=== PATIENT | female | born 1985 | race Caucasian/White ===

== ENCOUNTER 2017-06-26 06:18 | Inpatient (IN) | payer BC ==
[~2017-06-26] VITALS: Ht 167.6 cm; Wt 50.3 kg
[2017-06-26] VITALS (13 sets, daily range): BP systolic 89–121; BP diastolic 38–70
--- NOTE | 2017-06-26 01:01 | History and Physical Report ---
DATE OF ADMISSION: 06/26/2017 PREOPERATIVE DIAGNOSIS: Symptomatic uterine fibroid. HISTORY OF PRESENT ILLNESS: The patient who has been followed by me for approximately one year with a large uterine fibroid. Her symptoms included pain, dysmenorrhea, pressure like pain and heavy period. The patient has not attempted yet, but has planned to get soon. She was extensively counseled regarding risk factor management and she would like to have myomectomy. PAST MEDICAL HISTORY: None. PAST SURGICAL HISTORY: None. ALLERGIES: None. SOCIAL HISTORY: The patient does not drink or smoke. She lives with her fiance. REVIEW OF SYSTEMS: Contributory for lower abdominal pressure pain, occasional pain with intercourse, and heavy periods. PHYSICAL EXAMINATION: GENERAL: A young female, in no acute distress. HEAD AND NECK: Pupils are reactive to light. LUNGS: Clear to auscultation bilaterally. CARDIAC: Regular rate and rhythm. ABDOMEN: Soft, nondistended, and nontender. EXTREMITIES: No cords. No cyanosis. No edema. GENITOURINARY: Bimanual exam, 9 cm posterior fibroid adnexa, not easily palpable. Rectovaginal, no masses. DIAGNOSTIC DATA: Ultrasound consistent with 10 x 6 x 9 cm posterior fibroid. PLAN: Laparoscopically-assisted myomectomy with general anesthesia. Lyn Alex M.D. DR: Martina JOB#: [id number] CC:
[2017-06-26] MEDS ORDERED: cefOXitin Sod 2 GM in D5W 55 ML IVPB ONE (07:00)
[2017-06-26] MEDS ORDERED: Ropivacaine 5mg/ml Vial 20ml INJ ONE (07:04)
[2017-06-26] MEDS ORDERED: cefOXitin 1gm Inj ONE (07:05)
[2017-06-26] MEDS ORDERED: LR 1000ml 1,000 ML IVLG SCH (07:08)
--- NOTE | 2017-06-26 07:09 | Anethesia Preoperative Eval ---
Anesthesia Pre-op PMH/ROS General Date of Evaluation: Jun 26, 2017 Time of Evaluation: 07:41 Anesthesiologist: Kathy ASA Score: ASA 1 Mallampati Score Class I : Soft palate, uvula, fauces, pillars visible Class II: Soft palate, uvula, fauces visible Class III: Soft palate, base of uvula visible Class IV: Only hard plate visible Mallampati Classification: Class I Surgeon: Isai Diagnosis: Uterine Fibroids Surgical Procedure: Laparoscopic Myomectomy, Mini-Laparotomy Anesthesia History: none Family History: no anesthesia problems Allergies: Coded Allergies: No Known Allergies (Unverified , 06/25/17) Medications: see eMAR Anesthesia Pre-op Phys. Exam Physician Exam Last Vital Signs Date Time Temp Pulse Resp B/P Pulse Ox O2 Delivery O2 Flow Rate FiO2 06/26/17 06:56 98.2 71 18 109/66 100 Room Air Constitutional: NAD Neurologic: CN 2-12 intact Cardiovascular: RRR Respiratory: CTA Gastrointestinal: S/NT/ND Airway Exam Mallampati Score: Class I MO: full ROM: full Teeth: intact Anesthesia Pre-op A/P Risk Assessment & Plan Assessment: ASA 1 Plan: GA, BIS, Glidescope Status Change Before Surgery: Yes Pre-Antibiotics Dru Grams Cefoxitin Given Within 1 Hr of Incision: Yes Time Given: 07:51 Moises Chavez MD Jun 26, 2017 07:09
[2017-06-26] MEDS ORDERED: NKM (07:11)
[2017-06-26] MEDS ORDERED: oxyCODONE HCL/Acetaminophen 5/325mg ORAL PRN (07:15)
[2017-06-26] MEDS ORDERED: Ketorolac 30mg Inj IV PRN (07:15)
[2017-06-26] MEDS ORDERED: Norco 7.5mg/325mg tab ORAL PRN (07:15)
[2017-06-26] MEDS ORDERED: fentaNYL 100 mcg/2 mL IV PRN (07:15)
[2017-06-26] MEDS ORDERED: Midazolam 2mg/2ml Inj IVP PRN (07:15)
[2017-06-26] MEDS ORDERED: Ketorolac 60mg Inj IV PRN (07:15)
[2017-06-26] MEDS ORDERED: Hydromorphone 0.5mg/0.5ml inj IVP PRN (07:15)
[2017-06-26] MEDS ORDERED: LORazepam Inj 2mg/ml 1ml IV PRN (07:15)
[2017-06-26] MEDS ORDERED: DiphenhydrAMINE 50mg/ml Inj IVP PRN ×2 (07:15→14:00)
[2017-06-26] MEDS ORDERED: Atropine Inj 1mg/10ml Syr IV PRN (07:15)
[2017-06-26] MEDS ORDERED: Metoclopramide 10mg/2ml Inj IVP PRN (07:15)
[2017-06-26] MEDS ORDERED: Meperidine 25mg/0.5ml Inj (FOR RIGORS ONLY) IV PRN (07:15)
[2017-06-26] MEDS ORDERED: Norco 5mg/325mg tab ORAL PRN (07:15)
[2017-06-26] MEDS ORDERED: cefOXitin 1gm/D5W 55ml IVPB ONE ×2 (07:30)
--- NOTE | 2017-06-26 07:42 | Immediate Post-Op Evaluation ---
Immediate Post-Op Evalulation Immediate Post-Op Evalulation Procedure: Laparoscopic Myomectomy, Mini-Laparotomy Date of Evaluation: Jun 26, 2017 Time of Evaluation: 10:53 IV Fluids: 1000 LR Blood Products: 0 Estimated Blood Loss: 50 Urinary Output: 150 Blood Pressure Systolic: 89 Blood Pressure Diastolic: 51 Pulse Rate: 62 Respiratory Rate: 16 O2 Sat by Pulse Oximetry: 100 Temperature (Fahrenheit): 97.9 Pain Score (1-10): 2 Nausea: No Vomiting: No Complications 0 Patient Status: awake, reacts, patent, extubated, none Hydration Status: adequate Dru Grams Ancef IV Given Within 1 Hr of Incision: Yes Time Given: 07:51 Moises Chavez MD Jun 26, 2017 07:42
--- NOTE | 2017-06-26 07:49 | Pre-Procedure Note/Attestation ---
Pre-Procedure Note/Attestation Complete Prior to Procedure Planned Procedure: not applicable Procedure Narrative: laparoscopically assisted open myomectomy Indications for Procedure Pre-Operative Diagnosis: large symptomatic fibroid Attestation I attest that I discussed the nature of the procedure; its benefits; risks and complications; and alternatives (and the risks and benefits of such alternatives ), prior to the procedure, with the patient (or the patient's legal renewals representative). I attest that, if there was a reasonable possibility of needing a blood transfusion, the patient (or the patient's legal renewals representative) was given the [facility] standardized written summary, pursuant to the [employer] Blood Safety Act ([place] Health and Safety Code # 1645, as amended). I attest that I re-evaluated the patient just prior to the surgery and that there has been no change in the patient's H&P, except as documented below: MAMADOU NOVA Jun 26, 2017 07:49
[2017-06-26] MEDS ORDERED: Surgicel 4in x 8in TOPIC ONE (09:08)
[2017-06-26] MEDS ORDERED: Interceed TOPIC ONE (09:08)
[2017-06-26] MEDS ORDERED: Ketorolac 30mg Inj IM PRN (14:00)
[2017-06-26] MEDS: Docusate 100mg cap ORAL SCH (17:04)
[2017-06-26] MEDS: Hydromorphone 0.5mg/0.5ml inj IVP PRN (23:40)
[2017-06-27 04:00] VITALS: BP 111/92
[2017-06-27] MEDS: Hydromorphone 0.5mg/0.5ml inj IVP PRN (04:35)
[2017-06-27 06:03] LABS: BASOPHILS % (AUTO) 0.3 % (0.0-2.0); EOSINOPHILS % (AUTO) 0.2 % (0.0-3.0); LYMPHOCYTES % (AUTO) 10.6 % (20.0-45.0); MEAN CORPUSCULAR HEMOGLOBIN 31.7 PG (27.0-31.0); MEAN CORPUSCULAR HGB CONC 33.3 G/DL (32.0-36.0); MEAN CORPUSCULAR VOLUME 95 FL (80-99); MEAN PLATELET VOLUME 8.2 FL (6.5-10.1); MONOCYTES % (AUTO) 9.9 % (1.0-10.0); PLATELET COUNT 156 K/UL (150-450); RED BLOOD COUNT 3.71 M/UL (4.20-5.40); RED CELL DISTRIBUTION WIDTH 11.1 % (11.6-14.8); WHITE BLOOD COUNT 15.3 K/UL (4.8-10.8)
[2017-06-27 08:36] VITALS: BP 96/54
[2017-06-27] MEDS ORDERED: cefOXitin 1gm Inj ONE (09:20)
[2017-06-27] MEDS ORDERED: LR 1000ml ONE (09:20)
[2017-06-27] MEDS ORDERED: Glycopyrrolate 0.2mg/ml 1ml Vial ONE (09:20)
[2017-06-27] MEDS ORDERED: Lidocaine 1% Plain 30 ml INJ ONE (09:20)
[2017-06-27] MEDS ORDERED: Dexamethasone 4mg/ml vial ONE (09:20)
[2017-06-27] MEDS ORDERED: Zemuron 50mg/5ml Inj IV ONE (09:20)
[2017-06-27] MEDS ORDERED: NS Irrig 1000ml ONE (09:20)
[2017-06-27] MEDS ORDERED: Sterile Water Irrig 1000ml IRRIG ONE (09:20)
[2017-06-27] MEDS ORDERED: fentaNYL 100 mcg/2 mL IV ONE (09:20)
[2017-06-27] MEDS ORDERED: Neostigmine 1mg/ml 10ml Inj ONE (09:20)
--- NOTE | 2017-06-27 09:56 | General Surgery Progress Note ---
General Surgery-Progress Note Subjective Symptoms: pain absent, tolerating diet Objective Last 24 Hour Vital Signs Date Time Temp Pulse Resp B/P Pulse Ox O2 Delivery O2 Flow Rate FiO2 06/27/17 08:36 96.5 48 18 96/54 100 Room Air 06/27/17 05:05 98.2 06/27/17 04:00 98.2 58 18 111/92 98 Room Air 06/26/17 23:45 97.6 65 18 107/65 98 Room Air 06/26/17 20:00 97.4 70 19 111/62 98 Room Air 06/26/17 16:00 98.0 67 20 115/67 100 Room Air 06/26/17 14:40 97.0 67 18 106/57 100 Room Air 06/26/17 12:40 97.0 65 18 99/57 100 Nasal Cannula 2.0 06/26/17 11:40 96.8 74 20 121/70 99 Nasal Cannula 2.0 06/26/17 11:24 97.9 06/26/17 11:22 51 18 105/53 100 Nasal Cannula 2.0 06/26/17 11:16 56 18 99/53 100 Nasal Cannula 2.0 06/26/17 11:00 59 18 94/49 100 Nasal Cannula 2.0 06/26/17 10:52 62 18 90/47 100 Simple Mask 10.0 06/26/17 10:47 58 18 92/46 100 Simple Mask 10.0 06/26/17 10:43 62 16 100 06/26/17 10:42 97.9 62 18 89/38 100 Simple Mask 10.0 I&O Intake and Output 06/26/17 06/27/17 19:00 07:00 Intake Total 2240 ml 100 ml Output Total 1500 ml 1500 ml Balance 740 ml -1400 ml Intake Oral 240 ml 100 ml IV Total 2000 ml Output Urine Total 1450 ml 1500 ml Estimated Blood Loss 50 ml Dressing: dry, saturated, bloody Wound: clean, dry, intact Drains: none Cardiovascular: RSR Respiratory: clear Abdomen: soft, distended, present bowel sounds Laboratory Tests Test 06/27/17 05:20 White Blood Count 15.3 K/UL (4.8-10.8) H Red Blood Count 3.71 M/UL (4.20-5.40) L Hemoglobin 11.7 G/DL (12.0-16.0) L Hematocrit 35.3 % (37.0-47.0) L Mean Corpuscular Volume 95 FL (80-99) Mean Corpuscular Hemoglobin 31.7 PG (27.0-31.0) H Mean Corpuscular Hemoglobin Concent 33.3 G/DL (32.0-36.0) Red Cell Distribution Width 11.1 % (11.6-14.8) L Platelet Count 156 K/UL (150-450) Mean Platelet Volume 8.2 FL (6.5-10.1) Neutrophils (%) (Auto) 79.0 % (45.0-75.0) H Lymphocytes (%) (Auto) 10.6 % (20.0-45.0) L Monocytes (%) (Auto) 9.9 % (1.0-10.0) Eosinophils (%) (Auto) 0.2 % (0.0-3.0) Basophils (%) (Auto) 0.3 % (0.0-2.0) Plan Additional Comments s/p myomectomy discharge home MAMADOU NOVA Jun 27, 2017 09:56
--- NOTE | 2017-06-27 09:57 | Discharge Summary ---
Discharge Summary Hospital Course Date of Admission Jun 26, 2017 at 06:18 Date of Discharge jun [id number] Admitting Diagnosis symptomatic fibroid HPI Ana Murguia is a 32 year old female who was admitted on Jun 26, 2017 at 06: 18 for Uterine Fibroids Procedures myomectomy Hospital Course benign Discharge Condition Upon Discharge: stable Discharge Disposition Patient was discharged to home Discharge Diagnoses: MAMDAOU NOVA Jun 27, 2017 09:57
[2017-06-27] MEDS: Docusate 100mg cap ORAL SCH (10:04)
[2017-06-27] MEDS ORDERED: IBUPROFEN600 MG ORAL (10:49)
[2017-06-27] MEDS ORDERED: PROTONIX20 MG ORAL (10:51)
[2017-06-27] MEDS ORDERED: OXYCODONE-ACET1 EAC3 ORAL (11:32)
--- NOTE | 2017-06-27 13:30 | Operative Note - Dictated ---
DATE OF OPERATION: 06/26/2017 PREOPERATIVE DIAGNOSIS: Symptomatic uterine fibroids. POSTOPERATIVE DIAGNOSES: 1. Symptomatic uterine fibroids. 2. A 11 cm fibroid posterior fundal less than 30% penetrating the fundal myometrium. 3. The patient may have a trial of labor. SURGEON: Lyn Alex M.D. SHIP CEILER: Luis Fontana M.D. ANESTHESIOLOGIST: Moises Chavez M.D. ANESTHESIA: General endotracheal. ESTIMATED BLOOD LOSS: 200 mL. PROCEDURE: diagnostic laparoscopy and myomectomy PROCEDURE IN DETAIL: After ensuring informed consent, the patient was taken to the operating room, where general anesthesia was induced. The patient was sterilely prepped and draped. Weighted speculum was placed in the vagina. The acorn manipulator was placed inside the cervix. Then attention was turned to the abdomen where a small incision was made inside the umbilicus after infiltration with local anesthesia. A Veress needle was placed inside the peritoneal cavity. Peritoneal cavity was distended with CO2 gas. A 5 millimeter trocar was placed inside the peritoneal cavity and intraperitoneal placement was confirmed with the camera a large fundal 10 to 11 cm fibroid was observed if location was confirmed. A 4 centimeter incision was made over the fibroid in the lower abdomen. The incision was carried down to the level of the fascia with the Bovie. The fascia was nicked in the midline. Incision was extended laterally tented up and both bluntly and sharply dissected off of the underlying rectus muscles. Rectus muscles were parted in the midline. Peritoneum was identified, entered sharply. Peritoneal incision was extended. Fibroid was grasped with a Ludivina clamp. A dilute solution of Pitressin was infiltrated. IV serosa over the fibroid was opened and the fibroid was grasped with Ludivina clamps and it was a morcellate and multiple pieces were removed and so was possible to remove the whole fibroid. Serosa was trimmed. The uterine fundus was closed in multiple layers with 0 Vicryl until excellent hemostasis was assured. Intercede adhesion prevention. Abdomen was irrigated with a liter of fluid and the irrigant was suctioned off. Intercede adhesion prevention. The area was placed over the incision. Peritoneum was closed with 0 Vicryl. The fascia was closed with 0 Vicryl. Subcutaneous tissue was closed in multiple layers with 3-0 plain and skin was closed with 3-0 Monocryl and Steri-Strips. The umbilical incision was closed with 3-0 Monocryl and Steri-Strips. At the end of the procedure all instrument and lap counts were correct x2. A core removed from the cervix and excellent hemostasis was assured at the tenaculum puncture sites. At the end of the procedure. All instrument and lap counts were correct x2. The patient was taken to the recovery area extubated and breathing on her own. Lyn Alex M.D. DR: LONI JOB#: [id number] CC: IVETH
[2017-06-27 16:28] VITALS: BP 98/52
--- NOTE | 2017-06-27 16:28 | 48 Hour Post Anesthesia Eval ---
Post Anesthesia Evaluation Procedure: Laparoscopic Myomectomy, Mini-Laparotomy Date of Evaluation: Jun 27, 2017 Time of Evaluation: 16:27 Blood Pressure Systolic: 98 0: 52 Pulse Rate: 64 Respiratory Rate: 20 Temperature (Fahrenheit): 97.6 O2 Sat by Pulse Oximetry: 99 Airway: patent Nausea: No Vomiting: No Pain Intensity: 2 Hydration Status: adequate Cardiopulmonary Status: stable Mental Status/LOC: patient returned to baseline Follow-up Care/Observations: n/a Post-Anesthesia Complications: none Follow-up care needed: ready to discharge CONCETTA GUTHRIE M.D. Jun 27, 2017 16:28
== END 2017-06-27 11:45 | disposition home or self-care (01) | DRG 743 ==
LOC: SDSOVERFLO 06:18 → 3E 12:02
PROC: 0UB90ZZ Excision of Uterus, Open Approach (ICD-10-PCS; principal; 2017-06-26 07:30)
PROC: 0WJG4ZZ Inspection of Peritoneal Cavity, Percutaneous Endoscopic Approach (ICD-10-PCS; principal; 2017-06-26 07:30)
DX: D25.9 Leiomyoma of uterus, unspecified (principal); N94.6 Dysmenorrhea, unspecified
CPT/HCPCS: 36415; 81025; 85025; 87081; 94003; 94150; J2405; J2710